=== PATIENT | male | born 1965 | race Caucasian/White ===

== ENCOUNTER 2017-12-25 19:53 | Emergency (ER) | payer BC ==
[~2017-12-25] VITALS: Ht 177.8 cm; Wt 106.6 kg
[2017-12-25 20:46] LABS: ABSOLUTE BASOPHILS 0.1 thou/uL (0.0-0.2); ABSOLUTE EOSINOPHILS 0.1 thou/uL (0.0-0.7); ABSOLUTE LYMPHOCYTES 1.7 thou/uL (0.8-5.3); ABSOLUTE MONOCYTES 0.7 thou/uL (0.0-1.2); ABSOLUTE NEUTROPHILS 4.8 thou/uL (1.6-8.1); BASOPHILS 0.8 %; EOSINOPHILS 1.6 %; HEMATOCRIT 49.2 % (42.0-52.0); HEMOGLOBIN 16.9 gm/dL (14.0-18.0); LYMPHOCYTES 22.7 %; MCH 30.5 pg (26.0-34.0); MCHC 34.3 g/dL (28.0-37.0); MCV 88.8 fL (80.0-100.0); MONOCYTES 9.7 %; MPV 7.9 fl. (7.2-11.1); NUCLEATED RBCS 0 /100WBC; PLATELET COUNT* 241 thou/uL (150-400); POLYS 65.2 %; RBC 5.54 mil/uL (4.50-6.00); RDW-CV 13.2 % (10.5-14.5); WBC 7.3 thou/uL (4.0-11.0)
[2017-12-25 20:54] LABS: ANION GAP 6 mmol/L (7-16); BUN 15 mg/dL (7-18); CALCIUM 8.6 mg/dL (8.5-10.1); CHLORIDE 101 mmol/L (98-107); CO2 30 mmol/L (21-32); CREATININE 1.2 mg/dL (0.6-1.3); GLUCOSE 216 mg/dL (70-99); POTASSIUM 4.3 mmol/L (3.5-5.1); SODIUM 137 mmol/L (136-145)
[2017-12-25 21:04] LABS: ALBUMIN 3.4 g/dL (3.4-5.0); ALKALINE PHOSPHATASE 62 U/L (46-116); NT-PRO BRAIN NAT PEPTIDE 89 pg/mL (<300); SGOT 19 U/L (15-37); SGPT 35 U/L (30-65); TOTAL BILIRUBIN 0.8 mg/dL (<0.1-1.0); TOTAL PROTEIN 7.8 g/dL (6.4-8.2); TROPONIN-I LEVEL <0.06 ng/mL (<0.06)
[2017-12-25] MEDS ORDERED: LOPRESSOR50 PO (21:40)
[2017-12-25] MEDS ORDERED: SYNTHROID50 MCG PO (21:40)
[2017-12-25] MEDS ORDERED: ZESTRIL5 MG PO (21:40)
[2017-12-25 21:51] VITALS: BP 167/108
--- NOTE | 2017-12-26 11:53 | EKG ---
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 : 1965 Requested By: Jeni Roberto Order Number: [id number] Dhiraj MD: Julio Jones Measurements Intervals [place] Rate: 94 P: 8 ID: 195 QRS: -40 QRSD: 90 T: 20 QT: 329 QTc: 412 Interpretive Statements Sinus rhythm Multiple ventricular premature complexes Inferior infarct, old Baseline wander in lead(s) V1,V2,V3,V4,V5,V6 No previous ECG available for comparison Electronically Signed On 12-26-2017 11:53:35 CDT by Julio Jones [email or web address] <ELECTRONICALLY SIGNED> By: Julio Jones MD, [facility] 12/26/17 1153 12 12 Julio Jones MD, [facility] /EPI
== END 2017-12-25 21:55 | disposition home or self-care (01) ==
LOC: M.ERS 19:53
PROVIDERS: Emergency Medicine
DX: I10 Essential (primary) hypertension (principal); E11.9 Type 2 diabetes mellitus without complications; F17.210 Nicotine dependence, cigarettes, uncomplicated

== ENCOUNTER 2017-12-26 18:58 | Emergency (ER) | payer BC ==
[~2017-12-26] VITALS: Ht 177.8 cm; Wt 106.6 kg
[~2017-12-26 18:58] MED LIST: LOPRESSOR50 PO; SYNTHROID50 MCG PO; ZESTRIL5 MG PO
[2017-12-26 19:00] VITALS: BP 170/101
[2017-12-26 19:27] LABS: ABSOLUTE BASOPHILS 0.1 thou/uL (0.0-0.2); ABSOLUTE EOSINOPHILS 0.1 thou/uL (0.0-0.7); ABSOLUTE LYMPHOCYTES 1.7 thou/uL (0.8-5.3); ABSOLUTE MONOCYTES 0.6 thou/uL (0.0-1.2); BASOPHILS 0.8 %; EOSINOPHILS 1.7 %; HEMATOCRIT 49.6 % (42.0-52.0); HEMOGLOBIN 17.2 gm/dL (14.0-18.0); LYMPHOCYTES 22.8 %; MCH 30.7 pg (26.0-34.0); MCHC 34.6 g/dL (28.0-37.0); MCV 88.7 fL (80.0-100.0); MPV 7.8 fl. (7.2-11.1); NUCLEATED RBCS 0 /100WBC; PLATELET COUNT* 242 thou/uL (150-400); POLYS 66.7 %; RBC 5.59 mil/uL (4.50-6.00); WBC 7.6 thou/uL (4.0-11.0)
[2017-12-26 19:39] LABS: INR 1.1; PROTIME 10.4 Seconds (9.20-11.50)
[2017-12-26 19:44] LABS: ANION GAP 4 mmol/L (7-16); BUN 16 mg/dL (7-18); CHLORIDE 101 mmol/L (98-107); CO2 32 mmol/L (21-32); CREATININE 1.3 mg/dL (0.6-1.3); GLUCOSE 206 mg/dL (70-99); POTASSIUM 4.8 mmol/L (3.5-5.1); SODIUM 137 mmol/L (136-145)
[2017-12-26 19:49] LABS: ALBUMIN 3.3 g/dL (3.4-5.0); ALKALINE PHOSPHATASE 66 U/L (46-116); NT-PRO BRAIN NAT PEPTIDE 81 pg/mL (<300); SGOT 19 U/L (15-37); SGPT 37 U/L (30-65); TOTAL BILIRUBIN 0.6 mg/dL (<0.1-1.0); TOTAL PROTEIN 7.8 g/dL (6.4-8.2); TROPONIN-I LEVEL <0.06 ng/mL (<0.06)
[2017-12-26 22:52] VITALS: BP 138/83
--- NOTE | 2017-12-27 11:32 | EKG ---
[place] [address] ELECTROCARDIOGRAM REPORT Name: GABY CAMARA Room: [facility]#: [id number] Admission: 12/26/17 Attend Phys: Discharge: 12/26/17 Date of : 65 Report #: [id number] THIS REPORT FOR: //name// 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: JIMMIE Chris : 1965 Requested By: Jeni Roberto Order Number: [id number] MD: Julio Jones Measurements Intervals [place] Rate: 77 P: 14 MI: 187 QRS: -27 QRSD: 93 T: 20 QT: 354 QTc: 401 Interpretive Statements Sinus rhythm consider Inferior infarct, old Baseline wander in lead(s) II,aVF,V3,V4,V5,V6 Compared to ECG 12/25/2017 20:13:28 Ventricular premature complex(es) no longer present Myocardial infarct finding still present Electronically Signed On 12-27-2017 11:31:46 CDT by Julio Jones [email or web address] <ELECTRONICALLY SIGNED> By: Julio Jones MD, [facility] 12/27/17 1131 09 09 Julio Jones MD, [facility] /EPI
--- NOTE | 2017-12-27 11:33 | EKG ---
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
[2017-12-27 16:09] LABS: GLYCOHEMOGLOBIN (HGB A1C) 12.1 % (4.8-5.6)
== END 2017-12-26 22:54 | disposition short-term general hospital (02) ==
LOC: M.ERS 18:58 → M.TBA-ER 20:24 → M.ERS 22:54
PROVIDERS: Emergency Medicine
DX: R07.89 Other chest pain (principal); I10 Essential (primary) hypertension; E11.9 Type 2 diabetes mellitus without complications; F17.210 Nicotine dependence, cigarettes, uncomplicated